=== PATIENT | female | born 1990 | race Caucasian/White ===

== ENCOUNTER 2019-10-28 08:59 | Inpatient (IN) | payer OTHER ==
[2019-10-28] MEDS ORDERED: Diphenoxylate HCl/Atropine Tablet PO PRN ×2 (09:52)
[2019-10-28] MEDS ORDERED: Misoprostol 200 MCG TAB PR PRN (09:52)
[2019-10-28] MEDS ORDERED: Acetaminophen 500 MG TAB PO PRN (09:52)
[2019-10-28] MEDS ORDERED: Ibuprofen 800 MG TAB PO PRN (09:52)
[2019-10-28] MEDS ORDERED: hydrALAZINE 20 MG/ML VIAL SLOW IVP PRN ×2 (09:52→17:00)
[2019-10-28] MEDS ORDERED: Promethazine HCl 25 MG/ML VIAL IM PRN ×2 (09:52→14:22)
[2019-10-28] MEDS ORDERED: NS / Oxytocin 40 units/1000ml 1,000 ML IV PRN (09:52)
[2019-10-28] MEDS ORDERED: Butorphanol Tartrate 1 MG/ML VIAL SLOW IVP PRN (09:52)
[2019-10-28] MEDS ORDERED: Lidocaine 1% (PF) 30 ML VIAL SC PRN (09:52)
[2019-10-28] MEDS ORDERED: Ondansetron PF 4 MG/2 ML Vial IVP PRN ×3 (09:52→17:00)
[2019-10-28] MEDS ORDERED: Docusate 100 MG CAP PO PRN (09:52)
[2019-10-28] MEDS ORDERED: traMADol HCl 50 MG TAB PO PRN (09:54)
[2019-10-28] MEDS ORDERED: NS w/ Oxytocin 10 units 500 ML IV SCH ×2 (10:00)
[2019-10-28 10:12] VITALS: BMI 30.2
[2019-10-28 10:46] LABS: Hemoglobin 12.1 g/dL (12.0-16.0); Mean Corpuscular HGB CONC 33.4 g/dL (32.0-36.0); Mean Corpuscular Hemoglobin 29.2 pg (27.0-31.0); Mean Corpuscular Volume 87.4 fL (78.0-98.0); Mean Platelet Volume 10.9 fL (7.4-10.4); Platelet Count 212 thou/uL (130-400); RBC Distribution Width 13.5 % (11.5-14.5); Red Blood Cell (RBC) Count 4.13 mill/uL (4.20-5.40); White Blood Cell (WBC) Count 12.4 thou/uL (4.8-10.8)
[2019-10-28] MEDS: Lactated Ringer's 1,000 ML IV SCH ×2 (10:57→12:44)
[2019-10-28 11:31] LABS: HBSAg Index 0.29 S/CO (0-0.99); Hep B Surf Ag Non-Reactive S/CO (NonReactive); Syphilis Antibody Nonreactive (Nonreactive); Syphilis Antibody Index 0.04 S/CO (<1.00 Non-Reactive)
[2019-10-28] MEDS ORDERED: Fentanyl 4 mcg/Bup 0.1% Cadd 100 ML ONE (12:39)
[2019-10-28] MEDS ORDERED: Lactated Ringer's 500 ML IV PRN (14:22)
[2019-10-28] MEDS ORDERED: Naloxone HCl 0.4 mg/ml Vial IVP PRN ×2 (14:22)
[2019-10-28] MEDS ORDERED: EPHEDRINE 25 MG/5 ML SYRINGE IVP PRN (14:22)
[2019-10-28] MEDS ORDERED: Acetaminophen 325 MG TAB PO PRN (14:22)
[2019-10-28] MEDS ORDERED: diphenhydrAMINE 50 MG/ML VIAL IVP PRN (14:22)
[2019-10-28] MEDS ORDERED: NS / Oxytocin 40 units/1000ml 1,000 ML ONE (14:28)
[2019-10-28] MEDS ORDERED: Lidocaine 1% (PF) 30 ML VIAL ONE (14:28)
[2019-10-28] MEDS ORDERED: Fentanyl 4 mcg/Bupivacaine 0.1% Cassette 100 ML EPIDURAL SCH (14:30)
[2019-10-28] MEDS ORDERED: Communication Order-Pharmacy FS SCH (14:30)
[2019-10-28] MEDS ORDERED: Preparation H Ointment 28 GM TUBE PR PRN (17:00)
[2019-10-28] MEDS ORDERED: Milk Of Magnesia 30 ML UDCUP PO PRN (17:00)
[2019-10-28] MEDS ORDERED: Bisacodyl 10 MG SUPP PR PRN (17:00)
[2019-10-28] MEDS ORDERED: Misoprostol 200 MCG TAB VAG PRN (17:00)
[2019-10-28] MEDS ORDERED: Lanolin Ointment 7 GM TUBE TOP PRN (17:00)
[2019-10-28] MEDS ORDERED: Benzocaine-Menthol 82.5 ML CAN TOP PRN (17:00)
[2019-10-28] MEDS ORDERED: Zolpidem Tartrate 5 MG TAB PO PRN (17:00)
[2019-10-28] MEDS ORDERED: NS / Oxytocin 40 units/1000ml 1,000 ML IV SCH (17:00)
[2019-10-28] MEDS ORDERED: diphenhydrAMINE 25 MG CAP PO PRN (17:00)
[2019-10-28] MEDS ORDERED: Acetaminophen/Codeine 30-300mg Tablet PO PRN ×2 (21:30)
[2019-10-28] MEDS: Docusate Calcium (SURFAK) 240 MG CAP PO SCH (23:08)
[2019-10-28] MEDS: Ibuprofen 800 MG TAB PO SCH (23:08)
[2019-10-28] MEDS: Ferrous Sulfate 325 MG TAB PO SCH (23:09)
[2019-10-29] MEDS ORDERED: Butorphanol Tartrate 1 MG/ML VIAL SLOW IVP PRN (02:30)
[2019-10-29] MEDS: Ibuprofen 800 MG TAB PO SCH ×2 (05:08→13:32)
[2019-10-29] MEDS: Ferrous Sulfate 325 MG TAB PO SCH ×2 (08:18→17:10)
[2019-10-29] MEDS ORDERED: Prenatal Vitamin 1 TAB PO SCH (09:00)
[2019-10-29] MEDS ORDERED: Adacel (T-DAP) 0.5 ML SYRINGE IM ONE (09:00)
[2019-10-29] MEDS ORDERED: Pseudoephedrine HCl 30 MG TAB PO PRN (09:57)
[2019-10-29] MEDS: Docusate Calcium (SURFAK) 240 MG CAP PO SCH (09:59)
[2019-10-29] MEDS: Guaifenesin DM 100-10/5 ML UDCUP PO PRN ×2 (11:37→15:43)
[2019-10-29 15:57] VITALS: BP 120/77; TEMP 97.8
== END 2019-10-29 18:25 | disposition home or self-care (01) | DRG 807 ==
LOC: L&D 08:59 → 3SW 20:07
PROVIDERS: ADMIT Obstetrics & Gynecology; ATTEND Obstetrics & Gynecology
PROC: 10E0XZZ Delivery of Products of Conception, External Approach (ICD-10-PCS; principal; 2019-10-28)
PROC: 0W8NXZZ Division of Female Perineum, External Approach (ICD-10-PCS; 2019-10-28)
DX: O42.92 Full-term premature rupture of membranes, unspecified as to length of time between rupture and onset of labor (principal); Z37.0 Single live birth; Z3A.37 37 weeks gestation of pregnancy; O70.0 First degree perineal laceration during delivery
CPT/HCPCS: 36415; 51701; 85027; 86780; 86850; 86900; 86901; 87340; J2001; J2590